=== PATIENT | male | born 1955 | race Caucasian/White ===

== ENCOUNTER 2016-10-18 11:01 | Emergency (ER) | payer OTHER ==
[2016-10-18 10:37] LABS: URINE SOURCE CLEAN CATCH
[2016-10-18 10:45] LABS: URINE APPEARANCE CLEAR; URINE BILIRUBIN NEG (NEG); URINE BLOOD 3+ (NEG); URINE COLOR YELLOW; URINE GLUCOSE NEG (NEG); URINE KETONE NEG (NEG); URINE LEUKOCYTE ESTERASE TRACE (NEG); URINE NITRATE NEG (NEG); URINE PROTEIN 1+ (NEG); URINE SPECIFIC GRAVITY 1.012 (1.003-1.035); URINE UROBILINOGEN 0.2 MG/DL (NEG)
[2016-10-18 10:48] LABS: URBCS1 AUWI 200-300 /[HPF] (0-2); URINE BACTERIA AUWI NEG (NEGATIVE); URINE SQUAMOUS EPITHELIAL CELL NONE SEEN /[HPF]
[~2016-10-18 11:01] MED LIST: ALB/IPRATROPIUM/1 E2 INH; ALBUTEROL MININEB NEB; ALBUTEROL17 GM INH; ANEXSIA 7.5/3251 TA1 PO; AUGMENTIN875 MG PO; BREO ELLIPTA 11 EACH INH; COUMADIN PO; COUMADIN10 MG PO; COZAAR PO; COZAAR100 MG PO; DELTASONE20 MG PO; DILANTIN PO; DILANTIN50 MG PO; HUMIBID-LA600 MG PO; HYDROCODON-ACE1 EAC9 PO; LABETALOL HCL100 MG PO; LEVAQUIN750 M1 PO; LOSARTAN POTASS50 MG PO; LOVENOX80 MG/0.8 INJ; MEDROL DOSEPAK4 MG PO; NORMODYNE PO; NORMODYNE100 MG PO; PHENYTOIN SODI100 M4 PO; PREDNISONE PO; PREDNISONE10 MG/DOSE PO; PROVENTIL INH0.5 ML NEB; SPIRIVA18 MCG INH; SYMBICORT INH; TYLENOL325 M1 PO; VANTIN200 MG PO; VASOTEC PO; VIBRAMYCIN100 M1 PO
[2016-10-18 11:02] LABS: BASOPHIL% 0.7 % (0-2.5); EOSINOPHIL# 0.2 X10e3 (0-0.7); EOSINOPHIL% 4.1 % (0.0-7.0); HEMATOCRIT 40.8 % (38.0-50.0); HEMOGLOBIN 13.8 gm/dL (13.0-16.0); LYMPHOCYTE# 1.1 X10e3 (1.0-3.5); LYMPHOCYTE% 24.5 % (17.0-45.0); MEAN CELL VOLUME 93.6 FL (83-96); MEAN CORPUSCULAR HEMOGLOBIN 31.7 PG (28-34); MEAN CORPUSCULAR HGB CONC 33.9 g/dL (30-36); MEAN PLATELET VOLUME 7.3 FL (6.5-11.5); MONOCYTE# 0.5 X10e3 (0-1.0); NEUTROPHIL# 2.6 X10e3 (1.5-7.1); NEUTROPHIL% 58.7 % (40-75); PLATELET COUNT 200 X10e3 (140-420); RED BLOOD COUNT 4.36 X10e (3.90-5.60); RED CELL DISTRIBUTION WIDTH 13.8 % (11.0-15.5); WHITE BLOOD COUNT 4.4 X10e3 (4.0-10.5)
[2016-10-18 11:04] LABS: DIFF IND NO
[2016-10-18 11:06] LABS: CULTURE INDICATED? NO
[2016-10-18 11:23] LABS: BUN/CREATININE RATIO 13.33; CALCIUM SERUM 9.1 mg/dL (8.4-10.2); CREATININE SERUM 0.6 mg/dL (0.6-1.4); GLOM FILT RATE Estimated 107.8 mL/min (>60); POTASSIUM 4.4 mmol/L (3.5-5.1)
[2016-10-18 11:35] LABS: INR 7.5
[2016-11-08] MEDS ORDERED: DILANTIN PO ×2 (06:08→09:30)
[2016-11-08] MEDS ORDERED: NORMODYNE100 MG PO (06:09)
[2016-11-08] MEDS ORDERED: WARFARIN SODIUM2 MG PO (06:09)
[2016-11-08] MEDS ORDERED: LOSARTAN POTASS50 MG PO ×2 (06:10→09:30)
[2016-11-08] MEDS ORDERED: LORCET PLUS 7.1 EACH PO (06:10)
[2016-11-08] MEDS ORDERED: ZETIA PO ×2 (06:10→09:32)
[2016-11-08] MEDS ORDERED: SYMBICORT INH ×2 (06:11→09:30)
[2016-11-08] MEDS ORDERED: PROAIR RESPICL90 MCG INH (06:11)
== END 2016-10-18 12:04 | disposition home or self-care (01) ==
LOC: CED 11:01
PROVIDERS: Emergency Medicine
DX: R31.9 Hematuria, unspecified (principal); T45.511A Poisoning by anticoagulants, accidental (unintentional), initial encounter; F17.210 Nicotine dependence, cigarettes, uncomplicated; Z79.01 Long term (current) use of anticoagulants; Z79.899 Other long term (current) drug therapy; Z88.5 Allergy status to narcotic agent; Z91.041 Radiographic dye allergy status
CPT/HCPCS: 36415; 80048; 81003; 85025; 85610; 99283

== ENCOUNTER 2016-11-08 07:01 | Inpatient (IN) | payer OTHER, MEDICARE ==
--- NOTE | ~2016-11-08 | CR63 ---
[facility] A Service of [facility] RADIOLOGY TEXT RESULTS PATIENT: SHY MOORE LOCATION: [facility] 331-01 : 54 UNIT #: [id number] AGE: [address]: Jorgito Limon MD SEX: M ORDER DR: [id number] [facility] [address]. [place], [place] [address] [id number] I MR#: [id number] Acc #: [id number] NAME: SHY MOORE : 1955 SEX: M STUDY DATE/TIME: 11/08/2016 17:07 UNIT: [address] ROOM: [facility] STUDY DESCRIPTION: CR Chest 2 View Attending Physician: Anthony Gibbons M.D. Ordering Physician: Anthony Gibbons M.D. Primary Care Physician: Simba Rock M.D. MEDICAL IMAGING REPORT This report is preliminary unless electronic signature is present EXAM PA and lateral chest INDICATIONS Shortness of breath today. Comparison with earlier today. FINDINGS There is increased atelectasis or infiltrate within the left base. Heart size stable. Prior sternotomy. Degenerative change thoracic spine. IMPRESSION Increased atelectasis or infiltrate within the left base Dictated by... Hubert Josue M.D. THIS IS AN ELECTRONICALLY VERIFIED REPORT Hubert Josue M.D. at 11/09/2016 10:03 AM DORENE/arie TD: 11/08/2016 22:00 JOB #: [id number] MEDICAL IMAGING REPORT Page 1 of 1 COPY
--- NOTE | ~2016-11-08 | OR ---
Unit #: [id number] #: [id number] Patient: SHY MOORE [id number] [address] [place], [place] [address] [id number] I MR#: [id number] NAME: SHY MOORE ROOM: [facility] Date of Procedure: 11/11/2016 Admission Date: 11/08/2016 Surgeon: Leonardo Diaz M.D. : 1955 Attending Physician: Jorgito Limon M.D. Primary Care Physician: Simba Rock M.D. OPERATIVE REPORT PROCEDURE PERFORMED Flexible fiberoptic bronchoscopy. INDICATIONS FOR PROCEDURE Abnormal CAT scan, possible pneumonia, possible tumor. FINDINGS Copious thick mucoid secretions very difficult to remove. Post removal, no endobronchial lesions seen. SEDATION MAC. CONDITION AFTER PROCEDURE Good. COMPLICATIONS None. DESCRIPTION OF PROCEDURE The patient was brought to the endoscopy suite and monitored for heart rate, blood pressure, saturations, and end-tidal CO2. Sedated with MAC. Please see their protocol. Anesthetized with 2% lidocaine in both nares. Viscous lidocaine was applied to his right naris. Bronchoscope was introduced without difficulty. Vocal cords were visualized. There were normal in configuration and motion, and anesthetized x2. Main trachea was intubated. He has known subglottic stenosis. ENT has evaluated this but I have not. This area was photographed. Bronchoscope then was passed easily into his distal trachea. Almost immediately, very thick secretions were encountered. Very difficult to suction through the bronchoscope, in fact bronchoscope was removed x2 for mucus plugs and clearance of the scope. After removal of all mucus plugs, all subsegments were identified both on the right and the left and no endobronchial lesions were seen. Bronchoscope was removed without difficulty, and the patient was in good condition postprocedure. Specimens will be sent for culture, AFB, fungus, and cytopathology. The patient will be placed on heparin with the transition to Coumadin for his mechanical valve. Dictated by... Leonardo Diaz M.D. WOL/modl Unit #: [id number] #: [id number] Patient: SHY MOORE TD: 11/12/2016 00:01 JOB #: [id number] OPERATIVE REPORT Page 1 of 1 X Leonardo Diaz MD PROCEDURE OPERATIVE NOTE
--- NOTE | ~2016-11-08 | CT57 ---
[facility] A Service of [facility] RADIOLOGY TEXT RESULTS PATIENT: SHY MOORE LOCATION: [facility] 331-01 : 53 UNIT #: [id number] AGE: [address]: Jorgito Limon MD SEX: M ORDER DR: [id number] [facility] [address] [facility]. [place], [place] [address] [id number] I MR#: [id number] Acc #: [id number] NAME: SHY MOORE : 1955 SEX: M STUDY DATE/TIME: 11/09/2016 18:06 [facility] ROOM: [facility] STUDY DESCRIPTION: CT Chest Wo Cont Attending Physician: Jorgito Limon M.D. Ordering Physician: Jorgito Limon M.D. Primary Care Physician: Simba Rock M.D. MEDICAL IMAGING REPORT This report is preliminary unless electronic signature is present EXAM CT of the chest without contrast INDICATIONS COPD, shortness of breath for 2 days but worse today. Comparison with 07/03/2016. TECHNIQUE CT of the chest was performed without contrast. Coronal and sagittal reformatted images were obtained. This CT exam was performed with one or more of the following radiation dose reduction techniques: automatic control, adjustment of mA and/or kV according to patient size, and iterative reconstruction. FINDINGS There is increased atelectasis/consolidation within the left lower lobe. There is low-density material within the left mainstem bronchus extending into the left lower lobe bronchi consistent with mucous plugging. A superimposed pneumonia cannot be excluded. There is some minimal atelectasis in the lingula. Stable mild aneurysmal dilatation of the ascending aorta. There is no pleural effusion or suspicious lymphadenopathy. Limited imaging in the upper abdomen is unremarkable. Bone windows demonstrate no acute findings. IMPRESSION 1. There is increasing atelectasis/consolidation within the left lower lobe. Superimposed pneumonia cannot be excluded. 2. There is a low density material within the posterior aspect of the left mainstem bronchus extending into the left lower lobe bronchi most suggestive of mucous plugging. Dictated by... Hubert Josue M.D. [facility] A Service of [facility] RADIOLOGY TEXT RESULTS PATIENT: SHY MOORE LOCATION: [facility] 331-01 : 54 UNIT #: [id number] AGE: [address]: Jorgito Limon MD SEX: M ORDER DR: THIS IS AN ELECTRONICALLY VERIFIED REPORT Hubert Josue M.D. at 11/10/2016 7:55 AM DORENE/rnr TD: 11/09/2016 19:01 JOB #: [id number] MEDICAL IMAGING REPORT Page 1 of 1 COPY
--- NOTE | ~2016-11-08 | CR72 ---
[facility] A Service of [facility] RADIOLOGY TEXT RESULTS PATIENT: SHY MOORE LOCATION: A 331-01 : 53 UNIT #: [id number] AGE: [address]: Anthony Gibbons MD SEX: M ORDER DR: [id number] [facility] [address]. [place], [place] [address] [id number] E MR#: [id number] Acc #: [id number] NAME: SHY MOORE : 1955 SEX: M STUDY DATE/TIME: 11/08/2016 6:46 UNIT: [facility] ROOM: STUDY DESCRIPTION: CR Chest Single View Portable Attending Physician: Sam Angela M.D. Ordering Physician: Sam Angela M.D. Primary Care Physician: Simba Rock M.D. MEDICAL IMAGING REPORT This report is preliminary unless electronic signature is present EXAM Portable chest HISTORY Shortness of breath, cough and lower extremity edema for the past 3 days. TECHNIQUE Single AP view chest was obtained and compared with 07/04/2016 FINDINGS Postoperative changes of median sternotomy are seen. The heart and mediastinum are stable with a tortuous aorta again seen. In the lungs interstitial markings are generally prominent with Maude lines noted. This is new since the previous examination. There is chronic infiltrate with atelectasis at the left lung base. It was present on a previous chest x-ray from 07/02/2016 then resolved on the study from 07/04/2016 and has since recurred. No new infiltrates are seen elsewhere. No pleural fluid is noted. IMPRESSION 1. Lingular atelectasis and volume loss. This was also present on a previous portable chest from 07/02/2016 and has recurred since that time. 2. Stable heart and mediastinum. 3. A mild diffuse interstitial edema, slightly more prominent than on previous examinations. Dictated by... Bill Self M.D. THIS IS AN ELECTRONICALLY VERIFIED REPORT [facility] A Service of [facility] RADIOLOGY TEXT RESULTS PATIENT: SHY MOORE LOCATION: A 331-01 : 53 UNIT #: [id number] AGE: [address]: Anthony Gibbons MD SEX: M ORDER DR: Bill Self M.D. at 11/08/2016 3:47 PM RLF/josy TD: 11/08/2016 07:47 JOB #: [id number] MEDICAL IMAGING REPORT Page 1 of 1 COPY
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
--- NOTE | ~2016-11-08 | DS ---
Unit #: [id number] #: [id number] Patient: SHY MOORE [id number] [address] [place], [place] [address] [id number] I MR#: [id number] NAME: SHY MOORE ROOM: 331 Age: 61 Sex: M Admission Date: 11/08/2016 : 1955 Discharge Date: Attending Physician: Jorgito Limon M.D. Primary Care Physician: Simba Rock M.D. DISCHARGE SUMMARY FINAL DIAGNOSES 1. Acute exacerbation of chronic obstructive pulmonary disease. 2. Pneumonia. 3. Tracheal stenosis. 4. History of seizure disorder. 5. Hypertension. SECONDARY DIAGNOSES 1. Hyperlipidemia. 2. Abdominal aortic aneurysm. HISTORY OF CONSULTS 1. Dr. Suárez, Cardiology. 2. Dr. Diaz, Pulmonary. PROCEDURES He had a bronchoscopy on 11/11/16. HOSPITAL COURSE The patient is a pleasant 61-year-old gentleman with a history of mechanical aortic valve with tracheal stenosis who basically presented with some cough and shortness of breath. He was seen and evaluated through the ER and admitted. He was diagnosed as having acute exacerbation of COPD as well as pneumonia. His acute respiratory failure was thought to be multifactorial. There was a thought that he might have had a touch of acute on chronic systolic heart failure with his valve. He was diuresed and he was seen by Pulmonary. He was treated empirically with Rocephin and Zithromax. The patient is status post bronchoscopy per Dr. Diaz. Cultures were obtained and copious thick mucous was removed. He is feeling much better at this time. He has been evaluated and suitable and stable for discharge per Cardiology. His INR was 1.3 today. He is currently on a heparin drip. The plan per Cardiology is to have patient continue Lovenox 1 mg/kg/subcu b.i.d. and the patient does have a supply at home as well as Coumadin. He will be followed by Home Health as well as Cardiology for anticoagulation management. I will discharge him home with outpatient antibiotics and bronchodilators. MEDICATIONS ON DISCHARGE 1. Albuterol nebs one inhalation q.i.d. as needed. 2. Ventolin one to two puffs q.6 hourly as needed for shortness of air. 3. Symbicort 160/4.5 mcg two puffs inhalation b.i.d. 4. Prednisone 40 mg p.o. daily for five more days. 5. Coumadin 5 mg in the morning and 5 mg in the evening per home dose. 6. Zetia 10 mg p.o. daily. Unit #: [id number] #: [id number] Patient: SHY MOORE 7. Lasix 40 mg every morning. 8. Dilantin 400 mg p.o. at bedtime. 9. Losartan 50 mg p.o. daily. 10. Zithromax 500 mg p.o. daily x5 days. 11. Lortab 7.5/325 mg per home dose. 12. Labetolol 15 mg p.o. daily. 13. Vantin 200 mg p.o. b.i.d. for seven days. 14. Patient to have Lovenox 1 mg/kg subcu b.i.d. until his INR is therapeutic. He will be discharged home with home health and outpatient followup with Cardiology as well as his primary care provider, Dr. Simba Rock. Time spent coordinating discharge about 32 minutes. Dictated by... Jayesh Leonardo TD: 11/12/2016 11:53 JOB #: [id number] DISCHARGE SUMMARY Page 1 of 1 X Kaylee Merino MD X DISCHARGE SUMMARY
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
--- NOTE | ~2016-11-08 | EKG ---
PATIENT: SHY MOORE UNIT #: [id number] Ventricular Rate: 72 BPM Atrial Rate: 72 BPM P-R Interval: 156 ms QRS Duration: 94 ms Q-T Interval: 396 ms QTC Calculation(Bezet): 433 ms P [place]: 34 degrees Calculated R [place]: -39 degrees Calculated T [place]: 48 degrees Diagnosis Line: Normal sinus rhythm Diagnosis Line: Left axis deviation Diagnosis Line: Nonspecific ST abnormality Diagnosis Line: Abnormal ECG Diagnosis Line: No previous ECGs available Diagnosis Line: Confirmed by STEFAN HAYES MD ([id number]) on 11/09/2016 Diagnosis Line: 7:07:29 PM INTERPRETING MD: ABIGAIL TRAN
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
[2016-11-08 06:15] LABS: ARTERIAL BLD GAS O2 SATURATION 90.5 % (90.0-100.0); ARTERIAL BLOOD GAS ALLEN TEST NORMAL; ARTERIAL BLOOD GAS ART SITE LEFT RADIAL; ARTERIAL BLOOD GAS CARBOXY HB 0.8 %sat (0.0-9.0); ARTERIAL BLOOD GAS DELIVERY NASAL CANNULA; ARTERIAL BLOOD GAS HCO3 24.4 mmol/L; ARTERIAL BLOOD GAS MET HB 0.7 %sat (0.0-2.0); ARTERIAL BLOOD GAS PCO2 36.7 mmHg (35.0-45.0); ARTERIAL BLOOD GAS PO2 59.4 mmHg (80.0-100); ARTERIAL BLOOD GAS pH 7.431 (7.350-7.450); ARTERIAL DRAW? YES
[2016-11-08 06:29] LABS: BASOPHIL% 0.6 % (0-2.5); EOSINOPHIL# 0.2 X10e3 (0-0.7); EOSINOPHIL% 2.2 % (0.0-7.0); HEMATOCRIT 38.4 % (38.0-50.0); HEMOGLOBIN 12.9 gm/dL (13.0-16.0); LYMPHOCYTE# 1.8 X10e3 (1.0-3.5); LYMPHOCYTE% 23.9 % (17.0-45.0); MEAN CELL VOLUME 94.5 FL (83-96); MEAN CORPUSCULAR HEMOGLOBIN 31.8 PG (28-34); MEAN CORPUSCULAR HGB CONC 33.7 g/dL (30-36); MONOCYTE# 0.6 X10e3 (0-1.0); MONOCYTE% 8.6 % (3.0-12.0); NEUTROPHIL# 4.9 X10e3 (1.5-7.1); NEUTROPHIL% 64.7 % (40-75); PLATELET COUNT 293 X10e3 (140-420); RED BLOOD COUNT 4.06 X10e (3.90-5.60); RED CELL DISTRIBUTION WIDTH 13.9 % (11.0-15.5); WHITE BLOOD COUNT 7.6 X10e3 (4.0-10.5)
[2016-11-08 06:31] LABS: DIFF IND NO
[~2016-11-08 07:01] MED LIST changes: +LORCET PLUS 7.1 EACH PO; +PROAIR RESPICL90 MCG INH; +WARFARIN SODIUM2 MG PO; +ZETIA PO
[2016-11-08 07:13] LABS: POC - CKMB 2.8 ng/mL (0.0-7.9); POC - TROPONIN <0.05 ng/mL (<=0.05)
[2016-11-08 07:19] LABS: ALBUMIN SERUM 3.7 g/dL (3.5-5.0); BILIRUBIN, DIRECT 0.1 mg/dL (0.0-0.2); BILIRUBIN,INDIRECT 0.4 mg/dL (0.0-0.9); BILIRUBIN,TOTAL 0.5 mg/dL (0.2-2.0); BUN/CREATININE RATIO 15.71; CALCIUM SERUM 9.1 mg/dL (8.4-10.2); CREATININE SERUM 0.7 mg/dL (0.6-1.4); GLOM FILT RATE Estimated 101.2 mL/min (>60); POTASSIUM 4.3 mmol/L (3.5-5.1); PROTEIN TOTAL SERUM 6.8 g/dL (6.0-8.3)
[2016-11-08 07:22] LABS: INR 2.7; PARTIAL THROMBOPLASTIN TIME 46.9 SECONDS (23.5-31.3)
[2016-11-08 07:23] LABS: PROTHROMBIN TIME (PATIENT) 29.6 SECONDS (9.6-11.5)
[2016-11-08] MEDS ORDERED: LABETALOL PO (09:29)
[2016-11-08] MEDS ORDERED: ALBUTEROL MININEB NEB (09:29)
[2016-11-08] MEDS ORDERED: DILANTIN PO (09:30)
[2016-11-08] MEDS ORDERED: LOSARTAN POTASS50 MG PO (09:30)
[2016-11-08] MEDS ORDERED: SYMBICORT INH (09:30)
[2016-11-08] MEDS ORDERED: ALBUTEROL17 GM INH (09:31)
[2016-11-08] MEDS ORDERED: COUMADIN5 MG PO (09:31)
[2016-11-08] MEDS ORDERED: COUMADIN4 MG PO (09:31)
[2016-11-08] MEDS ORDERED: LORTAB 7.5-3251 EACH PO (09:32)
[2016-11-08] MEDS ORDERED: ZETIA PO (09:32)
[2016-11-09 05:24] LABS: BASOPHIL% 0.4 % (0-2.5); DIFF IND NO; EOSINOPHIL% 0.1 % (0.0-7.0); HEMATOCRIT 41.1 % (38.0-50.0); HEMOGLOBIN 13.7 gm/dL (13.0-16.0); LYMPHOCYTE# 0.7 X10e3 (1.0-3.5); LYMPHOCYTE% 8.1 % (17.0-45.0); MEAN CELL VOLUME 95.5 FL (83-96); MEAN CORPUSCULAR HEMOGLOBIN 31.7 PG (28-34); MEAN CORPUSCULAR HGB CONC 33.2 g/dL (30-36); MEAN PLATELET VOLUME 7.6 FL (6.5-11.5); MONOCYTE# 0.6 X10e3 (0-1.0); MONOCYTE% 6.1 % (3.0-12.0); NEUTROPHIL# 7.8 X10e3 (1.5-7.1); NEUTROPHIL% 85.3 % (40-75); PLATELET COUNT 272 X10e3 (140-420); RED CELL DISTRIBUTION WIDTH 13.9 % (11.0-15.5); WHITE BLOOD COUNT 9.1 X10e3 (4.0-10.5)
[2016-11-09 05:38] LABS: INR 2.4; PROTHROMBIN TIME (PATIENT) 26.6 SECONDS (9.6-11.5)
[2016-11-09 05:48] LABS: BUN/CREATININE RATIO 27.14; CREATININE SERUM 0.7 mg/dL (0.6-1.4); GLOM FILT RATE Estimated 101.2 mL/min (>60); POTASSIUM 3.9 mmol/L (3.5-5.1)
[2016-11-10 05:48] LABS: HEMATOCRIT 37.1 % (38.0-50.0); HEMOGLOBIN 12.3 gm/dL (13.0-16.0); MEAN CELL VOLUME 95.2 FL (83-96); MEAN CORPUSCULAR HEMOGLOBIN 31.6 PG (28-34); MEAN CORPUSCULAR HGB CONC 33.2 g/dL (30-36); RED BLOOD COUNT 3.89 X10e (3.90-5.60); WHITE BLOOD COUNT 7.2 X10e3 (4.0-10.5)
[2016-11-10 06:29] LABS: BUN/CREATININE RATIO 31.42; CALCIUM SERUM 8.7 mg/dL (8.4-10.2); CREATININE SERUM 0.7 mg/dL (0.6-1.4); GLOM FILT RATE Estimated 101.2 mL/min (>60)
[2016-11-10 11:16] LABS: INR 1.9
[2016-11-11 06:45] LABS: INR 1.6; PROTHROMBIN TIME (PATIENT) 16.7 SECONDS (9.6-11.5)
[2016-11-11 12:05] LABS: BUN/CREATININE RATIO 28.33; CALCIUM SERUM 9.1 mg/dL (8.4-10.2); CREATININE SERUM 0.6 mg/dL (0.6-1.4); GLOM FILT RATE Estimated 107.8 mL/min (>60); MAGNESIUM 1.8 mg/dL (1.6-3.0); POTASSIUM 3.7 mmol/L (3.5-5.1)
[2016-11-12 04:47] LABS: INR 1.3; PROTHROMBIN TIME (PATIENT) 14.1 SECONDS (9.6-11.5)
[2016-11-12 05:02] LABS: BUN/CREATININE RATIO 28.57; CALCIUM SERUM 8.5 mg/dL (8.4-10.2); CREATININE SERUM 0.7 mg/dL (0.6-1.4); GLOM FILT RATE Estimated 101.2 mL/min (>60); POTASSIUM 4.6 mmol/L (3.5-5.1)
[2016-11-12] MEDS ORDERED: LASIX PO (13:42)
[2016-11-12] MEDS ORDERED: LOVENOX80 MG/0.8 INJ (13:42)
[2016-11-12] MEDS ORDERED: PREDNISONE PO (13:43)
[2016-11-12] MEDS ORDERED: VANTIN200 MG PO (13:46)
[2016-11-12] MEDS ORDERED: ZITHROMAX500 MG PO (13:48)
== END 2016-11-12 14:38 | disposition home or self-care (01) | DRG 291 ==
LOC: CED 07:01 → CEDOF 07:40 → C3A PCU 15:01
PROVIDERS: Emergency Medicine; Internal Medicine; Nurse Practitioner Family
PROC: 0B918ZX Drainage of Trachea, Via Natural or Artificial Opening Endoscopic, Diagnostic (ICD-10-PCS; principal; 2016-11-11 10:00)
DX: I11.0 Hypertensive heart disease with heart failure (principal); J18.9 Pneumonia, unspecified organism; J96.00 Acute respiratory failure, unspecified whether with hypoxia or hypercapnia; T17.490A Other foreign object in trachea causing asphyxiation, initial encounter; J44.1 Chronic obstructive pulmonary disease with (acute) exacerbation; J44.0 Chronic obstructive pulmonary disease with (acute) lower respiratory infection; I50.23 Acute on chronic systolic (congestive) heart failure; Z95.2 Presence of prosthetic heart valve; I71.2 Thoracic aortic aneurysm, without rupture; G40.909 Epilepsy, unspecified, not intractable, without status epilepticus; E78.5 Hyperlipidemia, unspecified; Z79.01 Long term (current) use of anticoagulants; F17.210 Nicotine dependence, cigarettes, uncomplicated; R07.9 Chest pain, unspecified; F10.20 Alcohol dependence, uncomplicated; J39.8 Other specified diseases of upper respiratory tract
CPT/HCPCS: 36415; 36600; 71010; 71020; 71250; 74230; 80048; 80076; 80185; 82308; 82553; 82784; 82803; 82947; 83735; 83880; 84484; 85025; 85027; 85610; 85730; 86900; 86901; 87040; 87070; 87077; 87102; 87116; 87186; 87205; 87206; 88108; 88305; 92610; 92611; 93005; 93971; 94640; 94760; 97161; 97165; 99285; G8978-GP; G8979-GP; G8980-GP; G8987-GO; G8988-GO; G8989-GO; G8996-GN; G8997-GN; G8998-GN; J0171; J0456; J0696; J1644; J1940; J2250; J2920

== ENCOUNTER 2016-12-10 21:28 | Inpatient (IN) | payer OTHER ==
--- NOTE | ~2016-12-10 | CR72 ---
[facility] A Service of [facility] RADIOLOGY TEXT RESULTS PATIENT: SHY MOORE LOCATION: [facility] : 54 UNIT #: [id number] AGE: [address]: Ladonna Ervin MD SEX: M ORDER DR: [id number] [facility] [address] [facility]. [place], [place] [address] [id number] MR#: [id number] Acc #: [id number] NAME: SHY MOORE : 1955 SEX: M STUDY DATE/TIME: 12/10/2016 21:41 UNIT: [facility] ROOM: STUDY DESCRIPTION: CR Chest Single View Portable Attending Physician: Ladonna Ervin M.D. Ordering Physician: Ladonna Ervin M.D. Primary Care Physician: Simba Rock M.D. MEDICAL IMAGING REPORT This report is preliminary unless electronic signature is present EXAM Frontal chest 12/10/2016 INDICATIONS 61-year-old male with shortness of air since yesterday but chronic shortness of air. Cough. Hypertension. Quit tobacco abuse a month ago. TECHNIQUE Frontal chest compared with 11/08/2016 FINDINGS Postop changes median sternotomy are present. Cardiac silhouette borderline in size and stable. Coarsened interstitial markings are suggestive of underlying fibrosis and scarring. There are low lung volumes but there is no effusion or dense consolidation. Probable chronic blunting of the right CP angle related to pleural reaction. No pneumothorax. Resolution of opacities in the left lung base improved volume on the left compared to the prior study. IMPRESSION 1. Improved appearance of the chest compared to the prior study. Imaging findings suggests sequela of underlying chronic interstitial fibrosis and scarring. No effusion or dense consolidation or pneumothorax. Dictated by... Nomi Lewis M.D. THIS IS AN ELECTRONICALLY VERIFIED REPORT Nomi Lewis M.D. at 12/10/2016 11:15 PM LEA/fidel TD: 12/10/2016 23:11 [facility] A Service of [facility] RADIOLOGY TEXT RESULTS PATIENT: SHY MOORE LOCATION: [facility] : 54 UNIT #: [id number] AGE: [address]: Ladonna Ervin MD SEX: M ORDER DR: JOB #: [id number] MEDICAL IMAGING REPORT Page 1 of 1 COPY
--- NOTE | ~2016-12-10 | DS ---
Unit #: [id number] #: [id number] Patient: SHY MOORE [id number] [address] [place], [place] [address] [id number] I MR#: [id number] NAME: SHY MOORE ROOM: 231 Age: 61 Sex: M Admission Date: 12/10/2016 : 1955 Discharge Date: 12/13/2016 Attending Physician: Rosalinda Delaney M.D. Primary Care Physician: Simba Rock M.D. DISCHARGE SUMMARY PRINCIPAL DIAGNOSES 1. Acute hypoxic respiratory failure secondary to number 2, now resolved. 2. Acute exacerbation of chronic obstructive pulmonary disease. 3. Subtherapeutic International Normalized Ratio. 4. History of mechanical aortic valve replacement. 5. Tracheostenosis. 6. Continued tobacco abuse. 7. Hypertension. 8. Seizure disorder. 9. Alcohol use with questionable misuse. 10. Ascending aortic aneurysm measuring 4.[address] Diaz, pulmonology. DIAGNOSTIC STUDIES IMAGING: Chest x-ray on December 10, 2016 with chronic interstitial fibrosis and scarring. No dense consolidation or infiltrate. CLINICAL HISTORY AND HOSPITAL COURSE Mr. Moore is a 61-year-old male who presented to the emergency department with shortness of breath. Please refer to H and P for further details. Chest x-ray in the emergency department was unremarkable. However, the patient was found to be significantly wheezy on exam and did have some mild hypoxia with O2 sats in the 80s on room air. He was subsequently admitted. Patient was placed on oxygen, IV steroids and empiric antibiotics. Dr. Diaz was also consulted. With this treatment, patient's hypoxia resolved, and his wheezing has also essentially resolved. Room air O2 sats are now 100% on room air. We are going to transition to oral steroids, complete a short course of antibiotics, and patient can be discharged home from this regard. Patient was found to have a subtherapeutic INR upon presentation at 1.2. Patient has had difficulty controlling his INR in the past. He was placed on Lovenox injections in addition to an increase in dose of Coumadin. On day of discharge, INR is now up to 1.9. Goal INR is 2.5 to 3.5. I am going to send patient with a week's worth of Lovenox injections, continue him on Coumadin 11 mg daily and have instructed him on followup INR as noted. I will note I have contacted Dr. Rock's office to be certain INR can be done on , December 15, and I have been informed by his medical editor that this is, indeed, possible and patient has also been Unit #: [id number] #: [id number] Patient: SHY MOORE informed. Patient will be discharged home today. DISCHARGE CONDITION Stable. DISCHARGE STATUS Discharge to home. DISCHARGE MEDICATIONS 1. Prednisone 20 mg tablets 2 tablets daily for 4 days and 1 tablet daily for 4 days and discontinue. 2. Levaquin 500 mg 1 daily for 5 days. 3. Ventolin 2 puffs q.i.d. p.r.n. shortness of breath. 4. Albuterol sulfate nebulizer solution p.r.n. shortness of breath. 5. Symbicort 160/4.5 mcg 1 puff b.i.d. 6. Lovenox 80 mg subcutaneously q.12 hours, to stop when INR is greater than or equal to 2.5. 7. Coumadin 11 mg daily. After discussion with patient, he will take one 5 mg pill and three 2 mg pills at home. 8. Zetia 10 mg daily. 9. Labetalol 100 mg daily. 10. Dilantin 200 mg b.i.d. 11. Cozaar 50 mg daily. 12. Lorcet 7.5/325 mg 1 tablet p.o. b.i.d. p.r.n. 13. Spiriva 1 puff daily. DISCHARGE INSTRUCTIONS Patient was instructed to follow a heart healthy diet and constant amount of greens, particularly in regard to his Coumadin, and to refrain from any further tobacco use. FOLLOW-UP 1. Patient needs INR done on December 15, 2016, particularly given he is also going on Levaquin, which will affect Coumadin dosing. Will discontinue Lovenox when INR greater than or equal to 2.5. 2. He is to follow up with Dr. Diaz's nurse practitioner in 1-[address] Diaz as previously scheduled. 3. Patient will follow up with Dr. Rock in approximately 2 weeks and again present to his office for INR as noted. NOTE: Time spent on discharge - 34 minutes. Dictated by... Rosalinda Delaney M.D. BETH/per TD: 12/14/2016 08:12 JOB #: [id number] Unit #: [id number] #: [id number] Patient: FAMILIALISASHY TAPIA DISCHARGE SUMMARY Page 1 of 1 X Rosalinda Delaney MD X DISCHARGE SUMMARY
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
--- NOTE | ~2016-12-10 | EKG ---
PATIENT: SHY MOORE UNIT #: [id number] Ventricular Rate: 89 BPM Atrial Rate: 89 BPM P-R Interval: 158 ms QRS Duration: 94 ms Q-T Interval: 378 ms QTC Calculation(Bezet): 459 ms P Byron: 37 degrees Calculated R Byron: -24 degrees Calculated T Byron: 14 degrees Diagnosis Line: Normal sinus rhythm Diagnosis Line: Nonspecific ST and T wave abnormality Diagnosis Line: Abnormal ECG Diagnosis Line: No previous ECGs available Diagnosis Line: Confirmed by AMISHA MORALES MD ([id number]) on Diagnosis Line: 12/11/2016 3:46:21 PM INTERPRETING MD: CARMEN TRAN
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
[~2016-12-10 21:28] MED LIST changes: +COUMADIN4 MG PO; +COUMADIN5 MG PO; +LABETALOL PO; +LASIX PO; +LORTAB 7.5-3251 EACH PO; +ZITHROMAX500 MG PO
[2016-12-10 21:57] LABS: POC - CKMB 2.1 ng/mL (0.0-7.9); POC - TROPONIN <0.05 ng/mL (<=0.05)
[2016-12-10 22:37] LABS: BASOPHIL% 1.2 % (0-2.5); DIFF IND NO; EOSINOPHIL# 0.2 X10e3 (0-0.7); EOSINOPHIL% 5.2 % (0.0-7.0); HEMATOCRIT 37.2 % (38.0-50.0); HEMOGLOBIN 12.5 gm/dL (13.0-16.0); MEAN CELL VOLUME 94.7 FL (83-96); MEAN CORPUSCULAR HEMOGLOBIN 31.9 PG (28-34); MEAN CORPUSCULAR HGB CONC 33.7 g/dL (30-36); MEAN PLATELET VOLUME 7.2 FL (6.5-11.5); MONOCYTE# 0.4 X10e3 (0-1.0); MONOCYTE% 9.3 % (3.0-12.0); NEUTROPHIL# 1.5 X10e3 (1.5-7.1); NEUTROPHIL% 36.3 % (40-75); PLATELET COUNT 225 X10e3 (140-420); RED BLOOD COUNT 3.93 X10e (3.90-5.60); RED CELL DISTRIBUTION WIDTH 13.8 % (11.0-15.5); WHITE BLOOD COUNT 4.1 X10e3 (4.0-10.5)
[2016-12-10 22:51] LABS: INR 1.2; PROTHROMBIN TIME (PATIENT) 12.9 SECONDS (9.6-11.5)
[2016-12-10 22:58] LABS: ALBUMIN SERUM 3.8 g/dL (3.5-5.0); BILIRUBIN,TOTAL 0.3 mg/dL (0.2-2.0); CALCIUM SERUM 8.8 mg/dL (8.4-10.2); CREATININE SERUM 0.8 mg/dL (0.6-1.4); GLOM FILT RATE Estimated 95.8 mL/min (>60); POTASSIUM 3.8 mmol/L (3.5-5.1); PROTEIN TOTAL SERUM 6.8 g/dL (6.0-8.3)
[2016-12-10 22:59] LABS: BILIRUBIN, DIRECT 0.1 mg/dL (0.0-0.2); BILIRUBIN,INDIRECT 0.2 mg/dL (0.0-0.9)
[2016-12-10] MEDS ORDERED: DILANTIN PO (23:03)
[2016-12-10] MEDS ORDERED: ZETIA PO (23:04)
[2016-12-10] MEDS ORDERED: LOSARTAN POTASS50 MG PO (23:04)
[2016-12-10] MEDS ORDERED: NORMODYNE100 MG PO (23:04)
[2016-12-10] MEDS ORDERED: LORCET PLUS 7.1 EACH PO (23:05)
[2016-12-10] MEDS ORDERED: ALBUTEROL17 GM INH (23:05)
[2016-12-10] MEDS ORDERED: SYMBICORT INH (23:06)
[2016-12-10] MEDS ORDERED: COUMADIN PO (23:07)
[2016-12-10] MEDS ORDERED: ALBUTEROL MININEB NEB (23:08)
[2016-12-11 10:37] LABS: INR 1.5; PROTHROMBIN TIME (PATIENT) 15.8 SECONDS (9.6-11.5)
[2016-12-11 10:41] LABS: CALCIUM SERUM 9.1 mg/dL (8.4-10.2); CREATININE SERUM 0.6 mg/dL (0.6-1.4); GLOM FILT RATE Estimated 107.8 mL/min (>60); POTASSIUM 5.1 mmol/L (3.5-5.1)
[2016-12-12 05:05] LABS: INR 1.9; PROTHROMBIN TIME (PATIENT) 20.7 SECONDS (9.6-11.5)
[2016-12-12 06:42] LABS: BUN/CREATININE RATIO 28.33; CALCIUM SERUM 8.9 mg/dL (8.4-10.2); CREATININE SERUM 0.6 mg/dL (0.6-1.4); GLOM FILT RATE Estimated 107.8 mL/min (>60); POTASSIUM 4.1 mmol/L (3.5-5.1)
[2016-12-13 06:32] LABS: INR 1.9; PROTHROMBIN TIME (PATIENT) 20.9 SECONDS (9.6-11.5)
[2016-12-13] MEDS ORDERED: LOVENOX80 MG/0.8 INJ (10:40)
[2016-12-13] MEDS ORDERED: LEVAQUIN PO (10:40)
[2016-12-13] MEDS ORDERED: DELTASONE20 MG PO (10:43)
[2016-12-13] MEDS ORDERED: SPIRIVA18 MCG INH (10:59)
== END 2016-12-13 11:28 | disposition home or self-care (01) | DRG 190 ==
LOC: CED 21:28 → C5B 23:20 → CEDOF 23:20 → C5B 12-11 08:13 → C2A 12-12 12:01
PROVIDERS: Emergency Medicine; Internal Medicine
DX: J44.1 Chronic obstructive pulmonary disease with (acute) exacerbation (principal); J96.01 Acute respiratory failure with hypoxia; Z95.2 Presence of prosthetic heart valve; J39.8 Other specified diseases of upper respiratory tract; F17.210 Nicotine dependence, cigarettes, uncomplicated; I10 Essential (primary) hypertension; G40.909 Epilepsy, unspecified, not intractable, without status epilepticus; I71.2 Thoracic aortic aneurysm, without rupture; Z72.89 Other problems related to lifestyle; G89.29 Other chronic pain; E78.5 Hyperlipidemia, unspecified
CPT/HCPCS: 36415; 71010; 80048; 80076; 82553; 83880; 84484; 85025; 85379; 85610; 87070; 87205; 93005; 94640; 94664; 94760; 94761; 99285; J0456; J0696; J1650; J2920; J2930